=== PATIENT | female | born 1930 | race Caucasian/White ===

== ENCOUNTER 2017-10-12 17:04 | Inpatient (IN) | payer MEDICARE, MEDICAID ==
[~2017-10-12] VITALS: Ht 152.4 cm; Wt 59.0 kg
--- NOTE | 2017-10-12 17:20 | NUR ---
PT CAME FROM SNF WITH REPORT FROM EMS AFTER THE PATIENT HAD " EPISODE OF PSYCOSIS AFTER HAVING AN ARGUMENT WITH DTR. SAFETY AND COMFORT MEASURES PROVIDED. WILL MONITOR.
[2017-10-12] MEDS ORDERED: MIRT15TA7 PO (17:29)
[2017-10-12] MEDS ORDERED: MELA3TAB PO (17:29)
[2017-10-12] MEDS ORDERED: MAGN400O6 PO (17:29)
[2017-10-12] MEDS ORDERED: LORA1TAB PO (17:29)
[2017-10-12] MEDS ORDERED: DOCU-141 PO (17:29)
[2017-10-12] MEDS ORDERED: HALOPERIDOL LACTATE INJ 5 MG/ML VIAL ONE (17:29)
[2017-10-12] MEDS ORDERED: IPRA3AMP23 IH (17:29)
[2017-10-12] MEDS ORDERED: METO25TA20 PO (17:29)
[2017-10-12] MEDS ORDERED: MULT-447 PO (17:29)
[2017-10-12] MEDS ORDERED: CARB1TAB19 PO (17:29)
[2017-10-12] MEDS ORDERED: ACET-868 PO (17:29)
[2017-10-12] MEDS ORDERED: DONE10TA44 PO (17:29)
[2017-10-12] MEDS ORDERED: RIVA10TA PO (17:29)
[2017-10-12] MEDS ORDERED: MAG30ORA PO (17:29)
[2017-10-12] MEDS ORDERED: PANT40TA2 PO (17:29)
--- NOTE | 2017-10-12 17:31 | NUR ---
PT IS EXTREMELY AGITATED, SCREAMING, CRYING, KICKING AND PUNCHING STAFF MEMBERS. AT BS. RECEIVED VERBAL ORDERS FOR HALDOM 5MG IM- GIVEN ORDERED. SAFELY RESTRAINED PER PROTOCOL. WILL MONITOR.
[2017-10-12] MEDS ORDERED: LORAZEPAM INJ 2 MG/ML VIAL ONE (17:44)
--- NOTE | 2017-10-12 17:56 | NUR ---
RECEIVED VERBAL ORDERS FROM MD FOR ATIVAN 2MG IM. ORDERS CARRIED OUT. VSS. WILL MONITOR.
[2017-10-12 19:02] LABS: BASOPHILS % (AUTO) 0.4 % (0.0-2.0); EOSINOPHILS % (AUTO) 2.1 % (0.0-6.0); HEMATOCRIT 36 % (33-45); HEMOGLOBIN 12.3 g/dL (11.5-14.8); LYMPHOCYTES # (AUTO) 1.1 /CMM (0.8-4.8); LYMPHOCYTES % (AUTO) 18.4 % (20.0-44.0); MEAN CORPUSCULAR HGB CONC 34 g/dl (31.0-36.0); MEAN CORPUSCULAR VOLUME 95 fL (82-100); MONOCYTES # (AUTO) 0.3 /CMM (0.1-1.30); MONOCYTES % (AUTO) 4.7 % (2.0-12.0); NEUTROPHILS # (AUTO) 4.6 /CMM (1.8-8.9); NEUTROPHILS % (AUTO) 74.4 % (43.0-81.0); PLATELET COUNT (AUTO) 348 /CMM (150-450); WHITE BLOOD COUNT (AUTO) 6.1 K/uL (4.3-11.0)
[2017-10-12 19:19] LABS: CALCIUM, SERUM 8.9 mg/dL (8.5-10.1); CARBON DIOXIDE 23 mmol/L (21-32); CHLORIDE 107 mmol/L (98-107); CREATININE 0.8 mg/dL (0.6-1.3); GLUCOSE 108 mg/dL (74-106); POTASSIUM 3.7 mmol/L (3.5-5.1); SODIUM SERUM 140 mmol/L (136-145); UREA NITROGEN, BLOOD 22 mg/dL (7-18)
[2017-10-12 19:33] LABS: ACETAMINOPHEN 5 ug/ml (10-30); ALANINE AMINOTRANSFERASE 15 U/L (12-78); ALBUMIN 2.8 g/dL (3.4-5.0); ALKALINE PHOSPHATASE 67 U/L (46-116); ASPARTATE AMINOTRANSFERASE 21 U/L (15-37); BILIRUBIN,DIRECT 0.1 mg/dL (0.0-0.2); BILIRUBIN,TOTAL 0.2 mg/dL (0.2-1.0); TOTAL PROTEIN, SERUM 6.5 g/dL (6.4-8.2)
[2017-10-12 19:39] LABS: ALCOHOL, BLOOD < 3 mg/dL (0-0); SALICYLATE 1.8 mg/dL (2.8-20.0)
[2017-10-12 19:46] LABS: THYROID STIMULATING HORMONE 4.185 uIU/mL (0.358-3.74)
[2017-10-12 20:05] LABS: TROPONIN I < 0.017 ng/mL (0.00-0.056)
--- NOTE | 2017-10-12 20:15 | NUR ---
REPORT GIVEN TO LOAL SAVAGE.
--- NOTE | 2017-10-12 20:40 | NUR ---
UNABLE TO ESTABLISH IV ACCESS, PT REFUSED AFTER FEW TRIES. ENDORSED TO RECEIVING RN.
--- NOTE | 2017-10-12 22:00 | NUR ---
RN ADMITTING NOTES Pt ARRIVED TO FLOOR VIA GURNEY. Pt LOOKED CALM, BUT SEDATED. WAS GIVEN HALDOL 5MG IM AND ATIVAN 2MG IM IN THE ER DUE TO Pt's AGITATION AND COMBATIVENESS. PER BAGGAGE INSPECTOR NOTES. Pt WAS EXTREMELY AGITATED, KICKING AND SCREAMING, AND TRYING TO PUNCH STAFF MEMBERS; Pt HAD TO BE RESTRAINED. UPON ARRIVAL TO THE FLOOR, Pt WAS NO LONGER IN RESTRAINTS, AND WAS GOING IN AND OUT OF SLEEP. Pt WAS EASILY AWAKENED BY NAME. Pt WAS ABLE TO STATE HER OWN NAME, AND , AND WAS ABLE TO SAY THE CURRENT YEAR AND THE CURRENT US PRESIDENT, BUT WAS UNSURE WHERE SHE WAS (A/OX2). WHEN ASKED WHAT HAPPENED AND WHY SHE WAS HERE, Pt SAID SHE DID NOT KNOW AND DID NOT REMEMBER. ON TELE MONITOR FOR 24HR OBSERVATION. ONCE MEDICALLY CLEARED, SHE WILL BE TRANSFERRED TO GPS. SITTER IS AT BEDSIDE DUE TO 5150 HOLD. SAFETY MEASURES IN PLACE. BED LOW, LOCKED, HOB ELEVATED, SIDE RAILS UP, CALL LIGHT WITHIN REACH. WILL CONTINUE TO MONITOR Pt THROUGHOUT THE NIGHT FOR SAFETY.
--- NOTE | 2017-10-12 22:05 | NUR ---
5150 HOLD STARTED 10/12 @1915. SITTER AT BEDSIDE.
[2017-10-13] MEDS ORDERED: ACETAMINOPHEN 325 MG TABLET PO PRN (01:30)
[2017-10-13] MEDS ORDERED: MAG HYDROX/AL HYDROX/SIMETH 30 ML UDC PO PRN (01:30)
[2017-10-13] MEDS ORDERED: Z GUARD REMEDY 2 OZ OINT TP PRN (01:30)
[2017-10-13] MEDS ORDERED: ONDANSETRON HCL/PF 4 MG/2 ML VIAL IVP PRN (01:30)
[2017-10-13] MEDS ORDERED: MAGNESIUM HYDROXIDE 30 ML UDC PO PRN (01:30)
--- NOTE | 2017-10-13 02:00 | NUR ---
RN NOTES PERFORMED BEDSIDE SWALLOW EVAL. Pt WAS ABLE TO FOLLOW INSTRUCTIONS WELL AND SWALLOW FINE WITH ANY PROBLEMS. INFORMED CHILDCARE PROVIDER KAMERON. GAVE ORDER TO CHANGE NPO STATUS TO CARDIAC.
--- NOTE | 2017-10-13 02:20 | NUR ---
IV ACCESS: RFA #[id number]
[2017-10-13 04:00] VITALS: BP 118/48
--- NOTE | 2017-10-13 05:30 | NUR ---
RN NOTES Pt REFUSED AM LABS THIS MORNING, SAID SHE WANTED TO KEEP SLEEPING. LAB WILL TRY TO COME BACK LATER AFTER BREAKFAST.
[2017-10-13] MEDS: IV D5/0.45 NACL 1,000 ML IV PRN ×2 (05:56→18:15)
--- NOTE | 2017-10-13 06:55 | NUR ---
RN CLOSING NOTES NO SIGNIFICANT CHANGES IN Pt's CONDITION. NO S/S OF ACUTE DISTRESS OR SOB NOTED DURING THE NIGHT. ALL NEEDS MET AND ATTENDED TO. SAFETY MEASURES IN PLACE. TELE READING SR [id number]. WILL ENDORSE TO DAYSHIFT RN FOR Pt's SEAN.
--- NOTE | 2017-10-13 07:39 | NUR ---
TELE/RN OPENING NOTE PATIENT IN BED IN STABLE CONDITION. A/O X 2. NO SIGNS OF ACUTE DISTRESS. NO COMPLAIN OF PAIN OR DISCOMFORT. ON TELE MONITOR WITH SINUS RHYTHM RATE OF 63. ON HOLD, 1:1 SITTER AT BEDSIDE. ALL NEEDS ATTENDED TO. CALL LIGHT WITHIN REACH. WILL CONTINUE TO MONITOR TO ENSURE SAFETY.
[2017-10-13 07:41] VITALS: BP 122/56
[2017-10-13 08:00] VITALS: BP 122/56
[2017-10-13] MEDS: DOCUSATE SODIUM 100 MG CAPSULE PO SCH (08:48)
[2017-10-13] MEDS: PANTOPRAZOLE 40 MG VIAL IV SCH (08:48)
[2017-10-13] MEDS: MULTIVIT, IRON, MIN NO. 8, FA 1 TAB PO SCH (08:49)
[2017-10-13] MEDS: CARBIDOPA/LEVODOPA 10/100 MG 1 UDTAB PO SCH ×3 (08:49→16:34)
[2017-10-13] MEDS: METOPROLOL TARTRATE 25 MG TABLET PO SCH (08:49)
[2017-10-13 09:27] LABS: APPEARANCE,URINE SL CLOUDY (CLEAR); BILIRUBIN,URINE NEGATIVE (NEGATIVE); BLOOD, URINE TRACE-INTA Ery/uL (NEGATIVE); COLOR,URINE YELLOW (YELLOW); KETONES,URINE NEGATIVE (NEGATIVE); LEUKOCYTE ESTERASE ,URINE 1+ (NEGATIVE); NITRITE, URINE NEGATIVE (NEGATIVE); PROTEIN,URINE NEGATIVE (NEGATIVE); UGLUCOSE NEGATIVE (NEGATIVE); UROBILINOGEN,URINE 0.2 EU/dL (0.2)
[2017-10-13 09:46] LABS: BACTERIA,URINE Many /HPF (None Seen); RBC,URINE 0-2 /HPF (0-2); SQUAMOUS EPITHELIAL CELL,UR Few /HPF (None Seen); WBC,URINE TOO NUMEROUS TO COUN /HPF (0-3)
[2017-10-13 11:14] LABS: BASOPHILS # (AUTO) 0.1 /CMM (0.0-0.2); BASOPHILS % (AUTO) 1.1 % (0.0-2.0); EOSINOPHILS % (AUTO) 2.3 % (0.0-6.0); HEMATOCRIT 35 % (33-45); HEMOGLOBIN 11.7 g/dL (11.5-14.8); LYMPHOCYTES # (AUTO) 0.7 /CMM (0.8-4.8); LYMPHOCYTES % (AUTO) 11.3 % (20.0-44.0); MEAN CORPUSCULAR HGB CONC 34 g/dl (31.0-36.0); MEAN CORPUSCULAR VOLUME 97 fL (82-100); MONOCYTES # (AUTO) 0.5 /CMM (0.1-1.30); MONOCYTES % (AUTO) 7.8 % (2.0-12.0); NEUTROPHILS % (AUTO) 77.5 % (43.0-81.0); PLATELET COUNT (AUTO) 303 /CMM (150-450); RDW COEFFICIENT OF VARIATION 14.3 (11.5-15.0); RED BLOOD CELL COUNT(AUTO) 3.58 MIL/uL (4.0-5.2); WHITE BLOOD COUNT (AUTO) 6.5 K/uL (4.3-11.0)
[2017-10-13 11:37] LABS: CALCIUM, SERUM 8.2 mg/dL (8.5-10.1); CARBON DIOXIDE 24 mmol/L (21-32); CHLORIDE 107 mmol/L (98-107); CREATININE 0.8 mg/dL (0.6-1.3); GLUCOSE 117 mg/dL (74-106); PHOSPHORUS 3.8 mg/dL (2.5-4.9); POTASSIUM 3.9 mmol/L (3.5-5.1); SODIUM SERUM 140 mmol/L (136-145); UREA NITROGEN, BLOOD 16 mg/dL (7-18)
[2017-10-13] MEDS: CEPHALEXIN MONOHYDRATE 500 MG CAPSULE PO SCH ×2 (11:52→21:22)
[2017-10-13] MEDS: ALBUTEROL FS 2.5 MG/0.5 ML VIAL.NEB NEB SCH ×5 (12:06→23:04)
[2017-10-13] MEDS: IPRATROPIUM NEB FS 0.5 MG/2.5 ML AMPUL.NEB NEB SCH ×4 (12:06→23:04)
[2017-10-13 15:57] VITALS: BP 123/58
[2017-10-13 16:00] VITALS: BP 123/58
[2017-10-13] MEDS: ACETAMINOPHEN 325 MG TABLET PO PRN (16:35)
[2017-10-13] MEDS ORDERED: RIVAROXABAN 10 MG TABLET PO SCH (17:00)
--- NOTE | 2017-10-13 18:25 | NUR ---
MS/RN CLOSING NOTE PATIENT IN BED IN STABLE CONDITION. A/O X 2-3, NO SIGNS OF ACUTE DISTRESS. NO COMPLAIN OF PAIN OR DISCOMFORT. 1:1 SITTER AT BEDSIDE. ALL NEEDS ATTENDED TO. CALL LIGHT WITHIN REACH. WILL ENDORSE TO NEXT SHIFT FOR CONTINUITY OF CARE.
--- NOTE | 2017-10-13 19:08 | NUR ---
RN NOTES RECEIVE PT IN BED A/O X3 , 1:1 SITTER, NO S/S OF DISTRESS, STABLE, SAFETY MEASURES IN PLACE, CALL LIGHT WITHIN REACH, WILL CONTINUE TO MONITOR Addendum: 10/13/17 at 1909 by TAN HERNANDEZ RN ADDENDUM: CORRECTION. PT A/O X2
[2017-10-13 20:00] VITALS: BP 109/61
[2017-10-13] MEDS ORDERED: Medication Not On Formulary EA (Melatonin 3 MG) PO SCH (22:00)
[2017-10-13] MEDS ORDERED: MIRTAZAPINE 15 MG TABLET PO SCH (22:00)
[2017-10-13] MEDS ORDERED: DONEPEZIL 5 MG TABLET PO SCH (22:00)
[2017-10-14] MEDS: ACETAMINOPHEN 325 MG TABLET PO PRN (01:30)
--- NOTE | 2017-10-14 01:50 | NUR ---
PAGED HOSPITALIST BLOCK HANDLER AT NIGHT SPOKE TO EDDIE, FORESTRY SUPPORT SPECIALIST RELAYED PT BEING AGGRESSIVE TOWARD STAFF AND DISORGANIZED THOUGHTS PT RE ORIENTED PER EDDIE SHE WILL SEE THE PT.
--- NOTE | 2017-10-14 02:00 | NUR ---
MS RN NOTES PT NOW CALM AFTER REORIENTATION
--- NOTE | 2017-10-14 02:46 | NUR ---
MS RN NOTES SPOKE TO EDDIE VALUATION CONSULTANT ABOUT PT BEHAVIOR PER EDDIE SHE WILL PUT ORDER ONCE WHEN PT BECOMES AGITATIVE PT BEHAVIOR NOW IS CALM AND SLEEPING
[2017-10-14] MEDS ORDERED: QUETIAPINE FUMARATE 25 MG TABLET PO PRN (03:00)
[2017-10-14] MEDS: IPRATROPIUM NEB FS 0.5 MG/2.5 ML AMPUL.NEB NEB SCH ×3 (03:05→11:30)
[2017-10-14] MEDS: ALBUTEROL FS 2.5 MG/0.5 ML VIAL.NEB NEB SCH ×3 (03:05→11:30)
--- NOTE | 2017-10-14 06:54 | NUR ---
MS RN NOTES PT ASLEEP COMFORTABLY IN BED AND EASILY AWAKEN SEMI FOWLERS POSITION TOLERATING ROOM AIR 98% NOT IN RESPIRATORY DISTRESS. STABLE CONDITION. CALM. KEPT CLEAN AND DRY AND COMFORTABLE. NURSING CARE RENDERED. NEEDS ATTENDED AND ANTICIPATED. NO C/O OF PAIN. GOOD SKIN CARE PROVIDED. REPOSITION EVERY 2 HOURS FOR COMFORT. ON LOW BED TO ENSURE SAFETY, CALL LIGHT WITHIN REACH, WILL ENDORSE TO THE NEXT SHIFT CONTINUE PLAN OF CARE
--- NOTE | 2017-10-14 07:30 | NUR ---
MS/RN OPENING NOTE PATIENT IN BED IN STALE CONDITION. A/O X 2. NO SIGNS OF ACUTE DISTRESS. NO COMPLAIN OF PAIN OR DISCOMFORT. ON HOLD SECONDARY TO COMBATIVE, AGGRESSIVE BEHAVIOR. 1:1 SITTER AT BEDSIDE. ALL NEEDS ATTENDED TO. CALL LIGHT WITHIN REACH. WILL CONTINUE TO MONITOR TO ENSURE SAFETY.
[2017-10-14 08:27] VITALS: BP 140/70
[2017-10-14] MEDS: DOCUSATE SODIUM 100 MG CAPSULE PO SCH (08:27)
[2017-10-14] MEDS: MULTIVIT, IRON, MIN NO. 8, FA 1 TAB PO SCH (08:27)
[2017-10-14] MEDS: PANTOPRAZOLE 40 MG VIAL IV SCH (08:27)
[2017-10-14] MEDS: METOPROLOL TARTRATE 25 MG TABLET PO SCH (08:27)
[2017-10-14] MEDS: CARBIDOPA/LEVODOPA 10/100 MG 1 UDTAB PO SCH (08:27)
[2017-10-14] MEDS: CEPHALEXIN MONOHYDRATE 500 MG CAPSULE PO SCH (08:27)
[2017-10-14 11:07] LABS: BASOPHILS % (AUTO) 0.3 % (0.0-2.0); EOSINOPHILS % (AUTO) 2.6 % (0.0-6.0); HEMATOCRIT 34 % (33-45); HEMOGLOBIN 11.6 g/dL (11.5-14.8); LYMPHOCYTES # (AUTO) 0.8 /CMM (0.8-4.8); LYMPHOCYTES % (AUTO) 16.4 % (20.0-44.0); MEAN CORPUSCULAR HGB CONC 34 g/dl (31.0-36.0); MEAN CORPUSCULAR VOLUME 96 fL (82-100); MONOCYTES # (AUTO) 0.5 /CMM (0.1-1.30); MONOCYTES % (AUTO) 9.9 % (2.0-12.0); NEUTROPHILS # (AUTO) 3.2 /CMM (1.8-8.9); NEUTROPHILS % (AUTO) 70.8 % (43.0-81.0); PLATELET COUNT (AUTO) 299 /CMM (150-450); RDW COEFFICIENT OF VARIATION 13.8 (11.5-15.0); RED BLOOD CELL COUNT(AUTO) 3.56 MIL/uL (4.0-5.2); WHITE BLOOD COUNT (AUTO) 4.6 K/uL (4.3-11.0)
[2017-10-14 11:24] LABS: CALCIUM, SERUM 8.4 mg/dL (8.5-10.1); CARBON DIOXIDE 26 mmol/L (21-32); CHLORIDE 108 mmol/L (98-107); CREATININE 0.8 mg/dL (0.6-1.3); GLUCOSE 110 mg/dL (74-106); MAGNESIUM 2.1 mg/dL (1.8-2.4); PHOSPHORUS 3.6 mg/dL (2.5-4.9); POTASSIUM 4.2 mmol/L (3.5-5.1); SODIUM SERUM 143 mmol/L (136-145); UREA NITROGEN, BLOOD 11 mg/dL (7-18)
[2017-10-14 11:27] LABS: CHOLESTEROL 143 mg/dL (<200); HDL CHOLESTEROL 39 mg/dL (40-60); LDL 94 mg/dL (0-99); TRIGLYCERIDES 71 mg/dL (30-150)
--- NOTE | 2017-10-14 11:46 | NUR ---
MS/SOFTWARE DESIGN ANALYST PATIENT DISCHARGE TO [facility] IN STABLE CONDITION. A/OX 2, NO SIGNS OF ACUTE DISTRESS. NO COMPLAIN OF PAIN OR DISCOMFORT. ON HOLD. DISCHARGE EDUCATION AND INSTRUCTIONS PROVIDED, REINFORCEMENT NEEDED. REPORT GIVEN TO LYNNE SAVAGE FROM [facility]. IV LINE REMOVED. ALL NEEDS ATTENDED TO. LEFT VIA GURNEY IN STABLE CONDITION ACCOMPANIED BY 2 NURSES.
[2017-10-14] MEDS ORDERED: CEPH-570 PO (12:15)
== END 2017-10-14 11:30 | DRG 913 ==
LOC: ER 17:08 → TELE 20:46 → MED 10-13 09:12
PROVIDERS: ADMIT Hospitalist; ATTEND Hospitalist
DX: S09.90XA Unspecified injury of head, initial encounter (principal); N17.0 Acute kidney failure with tubular necrosis; G92 Toxic encephalopathy; E44.0 Moderate protein-calorie malnutrition; F33.2 Major depressive disorder, recurrent severe without psychotic features; I13.0 Hypertensive heart and chronic kidney disease with heart failure and stage 1 through stage 4 chronic kidney disease, or unspecified chronic kidney disease; F05 Delirium due to known physiological condition; N39.0 Urinary tract infection, site not specified; E88.09 Other disorders of plasma-protein metabolism, not elsewhere classified; G20 Parkinson's disease; R55 Syncope and collapse; W18.30XA Fall on same level, unspecified, initial encounter; I50.9 Heart failure, unspecified; F29 Unspecified psychosis not due to a substance or known physiological condition; N18.3 Chronic kidney disease, stage 3 (moderate); K21.9 Gastro-esophageal reflux disease without esophagitis; Z86.73 Personal history of transient ischemic attack (TIA), and cerebral infarction without residual deficits; Z87.440 Personal history of urinary (tract) infections; J44.9 Chronic obstructive pulmonary disease, unspecified; Z91.14 Patient's other noncompliance with medication regimen; Z88.2 Allergy status to sulfonamides; E03.9 Hypothyroidism, unspecified; Z68.25 Body mass index [BMI] 25.0-25.9, adult; F41.9 Anxiety disorder, unspecified; G30.9 Alzheimer's disease, unspecified; F02.80 Dementia in other diseases classified elsewhere, unspecified severity, without behavioral disturbance, psychotic disturbance, mood disturbance, and anxiety; F41.0 Panic disorder [episodic paroxysmal anxiety]; Y93.9 Activity, unspecified; Y92.129 Unspecified place in nursing home as the place of occurrence of the external cause; B96.20 Unspecified Escherichia coli [E. coli] as the cause of diseases classified elsewhere
CPT/HCPCS: 36415; 70450-TC; 71045-TC; 80048-TC; 80061-TC; 80076-TC; 80305; 81000-TC; 83735-TC; 84100-TC; 84439-TC; 84443-TC; 84481; 84484-TC; 85025-TC; 87081-TC; 87086-TC; 87186-TC; 93307-TC; 93880-TC; A4606; C9113; G0480; J1630; J2060; J3490; Z7610

== ENCOUNTER 2017-10-14 11:45 | Inpatient (IN) | payer MEDICARE, MEDICAID ==
[~2017-10-14] VITALS: Ht 147.3 cm; Wt 57.2 kg
[~2017-10-14 11:45] MED LIST: ACET-868 PO; CARB1TAB19 PO; DOCU-141 PO; DONE10TA44 PO; IPRA3AMP23 IH; LORA1TAB PO; MAG30ORA PO; MAGN400O6 PO; MELA3TAB PO; METO25TA20 PO; MIRT15TA7 PO; MULT-447 PO; PANT40TA2 PO; RIVA10TA PO
[2017-10-14] MEDS ORDERED: CEPH-570 PO (12:15)
[2017-10-14] MEDS ORDERED: TEMAZEPAM 7.5 MG CAPSULE PO PRN (13:30)
[2017-10-14] MEDS ORDERED: MAG HYDROX/AL HYDROX/SIMETH 30 ML UDC PO PRN ×2 (13:30→19:00)
[2017-10-14] MEDS ORDERED: MAGNESIUM HYDROXIDE 30 ML UDC PO PRN ×2 (13:30→19:00)
--- NOTE | 2017-10-14 16:00 | NUR ---
GPS/RN XAVIER MACIEL ETL DATA ARCHITECT SEEN THE PATIENT
--- NOTE | 2017-10-14 16:18 | NUR ---
RN NOTE: PATIENT CAME TO THE ER AT [facility] FROM [facility] FOR ALTERED MENTAL STATUS AND BEING COMBATIVE WITH STAFF. PATIENT WAS TRANSFERED FROM ER TO [facility]. FROM [facility] PATIENT IS COOPERATIVE AND ALERT IN THE MORNINGS. AT NIGHT PATIENT BECOMES CONFUSED AND COMBATIVE. FROM [facility], PATIENT TRANSFERRED TO [facility]. PATIENT ARRIVED INTO THE UNIT AT 1145. PATIENT IS ALERT AND ORIENTED X 2/3. PATIENT STATES SHE OFTEN HAS DEPRESSION AND ANXIETY. DENIES SI/HI AT THE MOMENT. DENIES COMMAND HALLUCINATIONS, VH, AND AH. PATIENT UNABLE TO SIGN ADMISSION PAPERS. BODY CHECK AND PICTURES ARE IN CHART. BELONGINGS LOGGED AND PUT AWAY INTO LOCKER. DR CASTILLO AWARE AND ADMISSION ORDERS INPUTTED. RAHEEM MADE AWARE AND WILL RECONCILE MEDICATIONS. PATIENT ORIENTED TO UNIT. POLICIES AND PROCEDURES EXPLAINED TO PATIENT. MRSA SWAB COMPLETED. WILL CONTINUE TO MONITOR PATIENT FOR SAFETY.
[2017-10-14 16:40] VITALS: BP 110/56
[2017-10-14] MEDS ORDERED: QUETIAPINE FUMARATE 25 MG TABLET PO SCH (17:00)
[2017-10-14] MEDS ORDERED: ALBUTEROL FS 2.5 MG/3 ML VIAL.NEB NEB PRN (19:00)
[2017-10-14] MEDS ORDERED: ACETAMINOPHEN 325 MG TABLET PO PRN (19:00)
[2017-10-14] MEDS ORDERED: IPRATROPIUM NEB FS 0.5 MG/2.5 ML AMPUL.NEB NEB PRN (19:00)
[2017-10-14] MEDS ORDERED: Medication Not On Formulary EA (Ipratropium/Albuterol Sulfate (Duoneb 2.5-0.5 Mg/3 Ml So IH SCH (19:30)
[2017-10-14 20:21] VITALS: BP 113/58
[2017-10-14] MEDS ORDERED: MIRTAZAPINE 15 MG TABLET PO SCH ×2 (22:00)
[2017-10-15] MEDS: CEPHALEXIN MONOHYDRATE 500 MG CAPSULE PO SCH ×3 (00:05→21:48)
[2017-10-15] MEDS: DONEPEZIL 5 MG TABLET PO SCH ×2 (00:06→21:48)
[2017-10-15 07:40] LABS: ALANINE AMINOTRANSFERASE 19 U/L (12-78); ALBUMIN 2.7 g/dL (3.4-5.0); ALKALINE PHOSPHATASE 61 U/L (46-116); ASPARTATE AMINOTRANSFERASE 18 U/L (15-37); BILIRUBIN,TOTAL 0.2 mg/dL (0.2-1.0); CALCIUM, SERUM 8.6 mg/dL (8.5-10.1); CARBON DIOXIDE 27 mmol/L (21-32); CHLORIDE 108 mmol/L (98-107); CREATININE 0.9 mg/dL (0.6-1.3); GLUCOSE 87 mg/dL (74-106); POTASSIUM 3.9 mmol/L (3.5-5.1); SODIUM SERUM 144 mmol/L (136-145); TOTAL PROTEIN, SERUM 6.2 g/dL (6.4-8.2); UREA NITROGEN, BLOOD 13 mg/dL (7-18)
[2017-10-15 07:41] LABS: CHOLESTEROL 140 mg/dL (<200); HDL CHOLESTEROL 38 mg/dL (40-60); LDL 96 mg/dL (0-99); TRIGLYCERIDES 85 mg/dL (30-150)
[2017-10-15 08:00] VITALS: BP 121/63
[2017-10-15] MEDS: DOCUSATE SODIUM 100 MG CAPSULE PO SCH (08:47)
[2017-10-15] MEDS: PANTOPRAZOLE 40 MG TABLET.DR PO SCH (08:47)
[2017-10-15] MEDS: MULTIVITAMINS,THERAGRAN 1 UDTAB TABLET PO SCH (08:47)
[2017-10-15] MEDS: CARBIDOPA/LEVODOPA 10/100 MG 1 UDTAB PO SCH ×3 (08:48→17:02)
[2017-10-15] MEDS: METOPROLOL TARTRATE 25 MG TABLET PO SCH (08:48)
[2017-10-15 16:00] VITALS: BP 128/70
[2017-10-15] MEDS: RIVAROXABAN 10 MG TABLET PO SCH (17:03)
[2017-10-15] MEDS: QUETIAPINE FUMARATE 25 MG TABLET PO SCH (17:03)
[2017-10-15 19:57] VITALS: BP 126/66
[2017-10-15] MEDS: MIRTAZAPINE 15 MG TABLET PO SCH (21:48)
[2017-10-15] MEDS: LORAZEPAM 0.5 MG TABLET PO PRN (21:48)
[2017-10-16 08:00] VITALS: BP 131/71
[2017-10-16] MEDS: CEPHALEXIN MONOHYDRATE 500 MG CAPSULE PO SCH ×2 (09:05→21:11)
[2017-10-16] MEDS: MULTIVITAMINS,THERAGRAN 1 UDTAB TABLET PO SCH (09:05)
[2017-10-16] MEDS: PANTOPRAZOLE 40 MG TABLET.DR PO SCH (09:05)
[2017-10-16] MEDS: DOCUSATE SODIUM 100 MG CAPSULE PO SCH (09:05)
[2017-10-16] MEDS: METOPROLOL TARTRATE 25 MG TABLET PO SCH (09:05)
[2017-10-16] MEDS: CARBIDOPA/LEVODOPA 10/100 MG 1 UDTAB PO SCH ×3 (09:23→16:52)
[2017-10-16] MEDS: QUETIAPINE FUMARATE 25 MG TABLET PO SCH ×2 (12:09→16:51)
[2017-10-16 16:00] VITALS: BP 118/52
[2017-10-16] MEDS: RIVAROXABAN 10 MG TABLET PO SCH (16:54)
[2017-10-16 20:19] VITALS: BP 104/68
[2017-10-16] MEDS: DONEPEZIL 5 MG TABLET PO SCH (21:11)
[2017-10-16] MEDS: MIRTAZAPINE 15 MG TABLET PO SCH (21:12)
[2017-10-16] MEDS: ACETAMINOPHEN 325 MG TABLET PO PRN (21:45)
[2017-10-17] MEDS: ACETAMINOPHEN 325 MG TABLET PO PRN ×2 (05:48→21:47)
--- NOTE | 2017-10-17 05:48 | NUR ---
GPS RN NOTES: PATIENT C/O LEFT KNEE PAIN, 09/15, ADMINISTERED ACETAMINOPHEN 650MG PO ORDERED. WILL CONTINUE TO MONITOR.
[2017-10-17] MEDS: PANTOPRAZOLE 40 MG TABLET.DR PO SCH (07:30)
[2017-10-17 08:00] VITALS: BP 125/68
[2017-10-17] MEDS: CARBIDOPA/LEVODOPA 10/100 MG 1 UDTAB PO SCH ×3 (08:57→17:00)
[2017-10-17] MEDS: CEPHALEXIN MONOHYDRATE 500 MG CAPSULE PO SCH ×2 (08:57→21:00)
[2017-10-17] MEDS: METOPROLOL TARTRATE 25 MG TABLET PO SCH (08:57)
[2017-10-17] MEDS: MULTIVITAMINS,THERAGRAN 1 UDTAB TABLET PO SCH (08:57)
[2017-10-17] MEDS: DOCUSATE SODIUM 100 MG CAPSULE PO SCH (08:57)
[2017-10-17] MEDS: QUETIAPINE FUMARATE 25 MG TABLET PO SCH ×2 (09:08→17:00)
--- NOTE | 2017-10-17 15:09 | NUR ---
Initial Discharge Note: Pt will return to [facility] Address: [address], [place] [address] . SW will help form a safe and proper discharge plan.
--- NOTE | 2017-10-17 15:26 | NUR ---
DEISI spoke with patient daughter Rosalee Camargo [phone] to inform her of patients discharge for 10/18/17 back to [facility]. Daughter stated she did not want mother to go back to [facility] because it was too far from daughters home and she wanted patient to be placed at a facility near [place]. DEISI explained to daughter that [facility] was an appropriate placement for patient based on patients level of care needed. Daughter was upset with DEISI stating she wanted SW to find a closer location to her home and that she did not agree with discharge plan. DEISI asked daughter if she was patients DPOA and daughter responded by saying she was not. DEISI stated to daughter that she would attempt to contact other locked SNP's near [place] however based on level of care needed patient may not be accepted. DEISI also went on to state to daughter that if she interfered with discharge plan she would be billed for additional hospital days. Daughter was upset and hung up on SW.
--- NOTE | 2017-10-17 15:48 | NUR ---
DEISI faxed referral to Maria Isabel palliative care coordinator at [facility] [phone]. SW called facility to confirm they had received referral. Confirmation was given.
[2017-10-17 16:10] VITALS: BP 97/56
[2017-10-17] MEDS: RIVAROXABAN 10 MG TABLET PO SCH (17:00)
[2017-10-17 20:00] VITALS: BP 130/69
[2017-10-17] MEDS: MIRTAZAPINE 15 MG TABLET PO SCH (21:01)
[2017-10-17] MEDS: DONEPEZIL 5 MG TABLET PO SCH (21:04)
[2017-10-17] MEDS: LORAZEPAM 0.5 MG TABLET PO PRN (23:40)
--- NOTE | 2017-10-17 23:40 | NUR ---
GPS RN NOTES: PATIENT IS ANXIOUS. VSS. ADMINISTERED ATIVAN 0.5MG PO ORDERED. WILL CONTINUE TO MONITOR [id number] FOR SAFETY AND BEHAVIOR.
--- NOTE | 2017-10-18 08:37 | NUR ---
DEISI spoke with Maria Isabel brownfield program coordinator at [facility] [phone] to inquire on referral status. Maria Isabel mentioned to DEISI that facility had availability however, she will not admit patient until she schedules a meeting with pts daughter Rosalee. DEISI stated to Maria Isabel that she would inform daughter and pt will be discharged to [facility].
--- NOTE | 2017-10-18 08:40 | NUR ---
DEISI contacted pts daughter Rosalee Camargo [phone] to inform her of patients discharge for 10/18/17 back to [facility] and referral status for [facility] Address: [address], [place] [address] . DEISI informed pts daughter that [facility] will accept pt however a meeting with Maria Isabel student records coordinator needed to be scheduled first before pts transfer. Pts daughter was agreeable to discharge plan and stated she would contact Maria Isabel to schedule and appointment and coordinate a transfer.
[2017-10-18] MEDS: CEPHALEXIN MONOHYDRATE 500 MG CAPSULE PO SCH (08:54)
[2017-10-18] MEDS: MULTIVITAMINS,THERAGRAN 1 UDTAB TABLET PO SCH (08:54)
[2017-10-18] MEDS: CARBIDOPA/LEVODOPA 10/100 MG 1 UDTAB PO SCH (08:54)
[2017-10-18] MEDS: PANTOPRAZOLE 40 MG TABLET.DR PO SCH (08:54)
[2017-10-18] MEDS: DOCUSATE SODIUM 100 MG CAPSULE PO SCH (08:54)
[2017-10-18 08:55] VITALS: BP 122/59
[2017-10-18] MEDS: METOPROLOL TARTRATE 25 MG TABLET PO SCH (08:55)
--- NOTE | 2017-10-18 10:11 | NUR ---
Discharge Note: Pt will be discharged at 11:00am and will be returning to [facility]. Address: [address] [place] [address] . Transportation to facility will be provided by [facility] [phone]. Daughter Rosalee Camargo [phone] was informed of discharge. Pt presented in a calm manner and stated "I am ready to go back." Pt denied any suicidal/homicidal ideations. Facilitated info to IDT team who are in agreement with discharge arrangement. The multidisciplinary exitcare form was done, printed, signed, and given to the patient. Business Writer: Dr. Braxton Jamison [address] [address] [phone] [facility] [id number] [address] [place] [address]
--- NOTE | 2017-10-18 11:20 | NUR ---
GPS/RN PATIENT CLEARED FOR DISCHARGE TO [facility] BY DR CASTILLO AND FAREBOX REPAIRER NEHEMIAH MONTANEZ. MEDICATIONS RECONCILED BY BOTH DR'S. MEDICATIONS, AFTERCARE PLAN AND EXIT CARE EXPLAINED TO PATIENT, VERBALIZED UNDERSTANDING. D/C PAPER WORK COMPLETED, BELONGINGS RETURNED, PATIENT REFUSED TO SIGN, CO- SIGNED BY 2 RN. PATIENT HAS BILATERAL BRUISING ON HANDS, SACRAL REDNESS AND SCABBING ON FOREHEAD. PATIENT REFUSED D/C PHOTOS STATED," I ALREADY HAD PICTURES TAKEN". PATIENT DENIES SI/HI/AH UPON DISCHARGE, PSYCHIATRIC TREATMENT PLANS MET. REPORT GIVEN TO ROBERT AT [facility], PRESCRIPTIONS FAXED TO FACILITY. PER PARLIAMENTARY ARCHIVIST, DAUGHTER KEITH AWARE AND AGREES WITH D/C PLAN. PATIENT LEFT UNIT CALM, COOPERATIVE, NO DISTRESS NOTED WITH AMBULANCE TRANSPORT AT SIDE.
== END 2017-10-18 11:20 | DRG 885 ==
LOC: GPS 11:45
PROVIDERS: ADMIT Psychiatry & Neurology Psychosomatic Medicine; ATTEND Nurse Practitioner Acute Care
DX: F29 Unspecified psychosis not due to a substance or known physiological condition (principal); N18.3 Chronic kidney disease, stage 3 (moderate); G20 Parkinson's disease; I13.0 Hypertensive heart and chronic kidney disease with heart failure and stage 1 through stage 4 chronic kidney disease, or unspecified chronic kidney disease; I50.9 Heart failure, unspecified; N39.0 Urinary tract infection, site not specified; F03.90 Unspecified dementia, unspecified severity, without behavioral disturbance, psychotic disturbance, mood disturbance, and anxiety; K21.9 Gastro-esophageal reflux disease without esophagitis; E03.9 Hypothyroidism, unspecified; J44.9 Chronic obstructive pulmonary disease, unspecified; Z86.73 Personal history of transient ischemic attack (TIA), and cerebral infarction without residual deficits; Z91.19 Patient's noncompliance with other medical treatment and regimen; F32.9 Major depressive disorder, single episode, unspecified; F41.9 Anxiety disorder, unspecified
CPT/HCPCS: 36415; 80053-TC; 80061-TC; 87081-TC; 97116-TC; 97530-TC

== ENCOUNTER 2018-03-26 12:47 | Inpatient (IN) | payer MEDICARE, MEDICAID ==
[~2018-03-26] VITALS: Ht 147.3 cm; Wt 56.2 kg
[~2018-03-26 12:47] MED LIST changes: +CEPH-570 PO; -LORA1TAB PO; -MELA3TAB PO
--- NOTE | 2018-03-26 13:00 | NUR ---
BIB RA ON 5150 HOLD FOR MEDICAL CLEARANCE. A/OX 1-2, CALM AND COOPERATIVE. BREATHING EVEN AND UNLABORED. NO SOB, NAD, VITALS STABLE. SAFETY AND COMFORT MEASURES IN PLACE. AWAITING MD ORDERS.
[2018-03-26 13:33] LABS: BASOPHILS # (AUTO) 0.1 /CMM (0.0-0.2); BASOPHILS % (AUTO) 1.8 % (0.0-2.0); EOSINOPHILS % (AUTO) 1.3 % (0.0-6.0); HEMATOCRIT 39 % (33-45); HEMOGLOBIN 12.6 g/dL (11.5-14.8); LYMPHOCYTES # (AUTO) 1.1 /CMM (0.8-4.8); LYMPHOCYTES % (AUTO) 19.2 % (20.0-44.0); MEAN CORPUSCULAR HGB CONC 32 g/dl (31.0-36.0); MEAN CORPUSCULAR VOLUME 93 fL (82-100); MONOCYTES # (AUTO) 0.3 /CMM (0.1-1.30); MONOCYTES % (AUTO) 5.5 % (2.0-12.0); NEUTROPHILS % (AUTO) 72.2 % (43.0-81.0); PLATELET COUNT (AUTO) 490 /CMM (150-450); RDW COEFFICIENT OF VARIATION 14.6 (11.5-15.0); RED BLOOD CELL COUNT(AUTO) 4.24 MIL/uL (4.0-5.2); WHITE BLOOD COUNT (AUTO) 5.6 K/uL (4.3-11.0)
[2018-03-26 13:41] LABS: CALCIUM, SERUM 8.8 mg/dL (8.5-10.1); CARBON DIOXIDE 27 mmol/L (21-32); CHLORIDE 106 mmol/L (98-107); CREATININE 1.2 mg/dL (0.6-1.3); GLUCOSE 106 mg/dL (74-106); POTASSIUM 4.3 mmol/L (3.5-5.1); SODIUM SERUM 139 mmol/L (136-145); UREA NITROGEN, BLOOD 30 mg/dL (7-18)
[2018-03-26 13:46] LABS: ACETAMINOPHEN 1 ug/ml (10-30); ALANINE AMINOTRANSFERASE 10 U/L (12-78); ALKALINE PHOSPHATASE 77 U/L (46-116); ASPARTATE AMINOTRANSFERASE 19 U/L (15-37); BILIRUBIN,TOTAL 0.2 mg/dL (0.2-1.0)
[2018-03-26 13:47] LABS: ALCOHOL, BLOOD < 3 mg/dL (0-0); SALICYLATE 1.9 mg/dL (2.8-20.0)
--- NOTE | 2018-03-26 13:57 | NUR ---
REPORT GIVEN TO ITZ SAVAGE FOR SEAN UPON ADMISSION.
[2018-03-26 13:59] LABS: THYROID STIMULATING HORMONE 1.283 uIU/mL (0.358-3.74)
[2018-03-26 14:06] LABS: APPEARANCE,URINE Clear (CLEAR); BILIRUBIN,URINE Negative (NEGATIVE); BLOOD, URINE Trace-lysed Ery/uL (NEGATIVE); COLOR,URINE Yellow (YELLOW); KETONES,URINE Trace (NEGATIVE); LEUKOCYTE ESTERASE ,URINE Large (NEGATIVE); NITRITE, URINE Negative (NEGATIVE); PH,URINE 5.5 (5.0-8.0); PROTEIN,URINE Trace mg/dl (NEGATIVE); UGLUCOSE Negative (NEGATIVE); UROBILINOGEN,URINE 0.2 EU/dL (0.2)
[2018-03-26 14:10] LABS: BACTERIA,URINE Many /HPF (None Seen); SQUAMOUS EPITHELIAL CELL,UR Few /HPF (None Seen); WBC,URINE 81-100 /HPF (0-3)
--- NOTE | 2018-03-26 14:25 | NUR ---
PATIENT TRANSPORTED TO [facility] VIA WHEELCHAIR. RNITZ TO PROVIDE SEAN.
[2018-03-26] MEDS ORDERED: MAGNESIUM HYDROXIDE 30 ML UDC PO PRN (14:30)
[2018-03-26] MEDS ORDERED: MAG HYDROX/AL HYDROX/SIMETH 30 ML UDC PO PRN (14:30)
[2018-03-26] MEDS ORDERED: ACETAMINOPHEN 325 MG TABLET PO PRN ×2 (14:30→19:00)
[2018-03-26 15:19] VITALS: BP 93/55
--- NOTE | 2018-03-26 15:23 | NUR ---
GPS RN ADMITTING NOTE: PT 88 Y/O FEMALE ADMITTED FROM [facility] PLACED ON 5150 HOLD FOR DTO, PER HOLD PT WAS ACTING OUT AGGRESSIVELY TOWARDS OTHERS RESIDENTS AND STAFF IN THE FACILITY,PT HAS HX OF PARKINSON DISEASES, HARDR FAILURE,COPD,CKD,UTI,MDD,DEMENTIA,TIA,GERD. DR CASTILLO NOTIFIED WITH STANDING ORDERS,N.P. SABRINA AWARE TO RECONCILE MEDICATIONS AND RECENT LABS, PT AMBULATORY A/OX2 WITH CONFUSIONS. ALL BELONGINGS CHECKED, SKIN CLEAN AND INTACT.PT CONFUSED, EASILY AGITATED, IRRITABLE, ARGUMENTATIVE.
[2018-03-26 16:00] VITALS: BP 93/55
[2018-03-26] MEDS: ALBUTEROL FS 2.5 MG/3 ML VIAL.NEB NEB SCH (19:30)
[2018-03-26] MEDS: IPRATROPIUM NEB FS 0.5 MG/2.5 ML AMPUL.NEB NEB SCH (19:30)
[2018-03-26 20:25] VITALS: BP 110/64
[2018-03-26] MEDS: CEPHALEXIN MONOHYDRATE 500 MG CAPSULE PO SCH ×2 (21:00→21:16)
[2018-03-26] MEDS: DONEPEZIL 5 MG TABLET PO SCH (21:21)
[2018-03-26] MEDS: TEMAZEPAM 7.5 MG CAPSULE PO PRN (21:22)
--- NOTE | 2018-03-26 21:24 | NUR ---
TEMAZEPAM 7.5 MG CAP 1 PO GIVEN.
[2018-03-26] MEDS ORDERED: MIRTAZAPINE 15 MG TABLET PO SCH (22:00)
[2018-03-27] MEDS ORDERED: CEPHALEXIN MONOHYDRATE 250 MG CAPSULE PO SCH
[2018-03-27] MEDS: IPRATROPIUM NEB FS 0.5 MG/2.5 ML AMPUL.NEB NEB SCH (01:30)
[2018-03-27] MEDS: ALBUTEROL FS 2.5 MG/3 ML VIAL.NEB NEB SCH (01:30)
[2018-03-27 08:00] VITALS: BP 114/60
[2018-03-27 08:13] LABS: ALANINE AMINOTRANSFERASE 18 U/L (12-78); ALBUMIN 2.9 g/dL (3.4-5.0); ALKALINE PHOSPHATASE 67 U/L (46-116); ASPARTATE AMINOTRANSFERASE 21 U/L (15-37); BILIRUBIN,TOTAL 0.3 mg/dL (0.2-1.0); CALCIUM, SERUM 8.6 mg/dL (8.5-10.1); CARBON DIOXIDE 27 mmol/L (21-32); CHLORIDE 107 mmol/L (98-107); CREATININE 0.9 mg/dL (0.6-1.3); GLUCOSE 84 mg/dL (74-106); POTASSIUM 4.2 mmol/L (3.5-5.1); SODIUM SERUM 142 mmol/L (136-145); TOTAL PROTEIN, SERUM 6.5 g/dL (6.4-8.2); UREA NITROGEN, BLOOD 26 mg/dL (7-18)
[2018-03-27 08:15] LABS: CHOLESTEROL 162 mg/dL (<200); HDL CHOLESTEROL 42 mg/dL (40-60); LDL 117 mg/dL (0-99); TRIGLYCERIDES 90 mg/dL (30-150)
[2018-03-27] MEDS: CEPHALEXIN MONOHYDRATE 500 MG CAPSULE PO SCH ×2 (09:11→21:16)
[2018-03-27] MEDS: DOCUSATE SODIUM 100 MG CAPSULE PO SCH (09:11)
[2018-03-27] MEDS: CARBIDOPA/LEVODOPA 10/100 MG 1 UDTAB PO SCH ×3 (09:11→16:22)
[2018-03-27] MEDS: METOPROLOL TARTRATE 25 MG TABLET PO SCH (09:12)
[2018-03-27] MEDS: MULTIVITAMINS,THERAGRAN 1 UDTAB TABLET PO SCH (09:12)
[2018-03-27] MEDS: PANTOPRAZOLE 40 MG TABLET.DR PO SCH (09:13)
--- NOTE | 2018-03-27 15:12 | NUR ---
DEISI called the pt's daughter, Rosalee ([phone]), and discussed the discharge plan of the pt returning to [facility].
--- NOTE | 2018-03-27 15:13 | NUR ---
Initial Discharge Plan: Pt currently resides at [facility] located at [id number] [place] [id number]; . Per pt and her daughter, Rosalee ([phone]), the pt should return to the facility. SW will work with the pt and the MD regarding appropriate discharge planning. SW will form a safe and proper discharge.
[2018-03-27 16:00] VITALS: BP 158/79
[2018-03-27] MEDS: RIVAROXABAN 10 MG TABLET PO SCH (16:31)
[2018-03-27 19:58] VITALS: BP 113/50
[2018-03-27 20:00] VITALS: BP 113/50
--- NOTE | 2018-03-27 20:00 | NUR ---
GPS/RN OPENING NOTES RECEIVED PATIENT , SITTING IN WHEELCHAIR, ABLE TO WHEEL SELF, NO S/S OF PAIN AND DISTRESS NOTED AND VERBALIZED, REQUESTED TO HAVE DIAPER PLACED ON BEFORE BED TIME, OFFERED FLUIDS, INSTRUCTED TO CALL FOR ASSISTANCE AT ALL TIMES. WILL CONTINUE TO MONITOR.
[2018-03-27] MEDS: DONEPEZIL 5 MG TABLET PO SCH (21:16)
[2018-03-27] MEDS: MIRTAZAPINE 15 MG TABLET PO SCH (21:16)
[2018-03-28] MEDS: TEMAZEPAM 7.5 MG CAPSULE PO PRN (01:52)
--- NOTE | 2018-03-28 01:52 | NUR ---
GPS/RN NOTES PATIENT AWAKEN FROM BED AND REPORTED UNABLE TO SLEEP WELL, REPORTED AND REQUESTED TO TAKE NEEDED RESTOEIL . ALERT, VERBALIZED NEEDS.SAD EXPRESSION .
[2018-03-28] MEDS: PANTOPRAZOLE 40 MG TABLET.DR PO SCH (07:30)
[2018-03-28 08:00] VITALS: BP 123/59
[2018-03-28] MEDS: CARBIDOPA/LEVODOPA 10/100 MG 1 UDTAB PO SCH ×3 (08:59→17:02)
[2018-03-28] MEDS: MULTIVITAMINS,THERAGRAN 1 UDTAB TABLET PO SCH (08:59)
[2018-03-28] MEDS: DOCUSATE SODIUM 100 MG CAPSULE PO SCH (09:00)
[2018-03-28] MEDS: CEPHALEXIN MONOHYDRATE 500 MG CAPSULE PO SCH ×2 (09:00→21:49)
[2018-03-28] MEDS: METOPROLOL TARTRATE 25 MG TABLET PO SCH (09:00)
[2018-03-28 16:00] VITALS: BP 100/55
[2018-03-28] MEDS: RIVAROXABAN 10 MG TABLET PO SCH (17:03)
[2018-03-28 20:00] VITALS: BP_SYST 109; BP_SYST 115; BP_DIAS 52; BP_DIAS 64
[2018-03-28] MEDS: QUETIAPINE FUMARATE 25 MG TABLET PO SCH (21:49)
[2018-03-28] MEDS: MIRTAZAPINE 15 MG TABLET PO SCH (21:49)
[2018-03-28] MEDS: DONEPEZIL 5 MG TABLET PO SCH (21:49)
--- NOTE | 2018-03-28 22:18 | NUR ---
RT UNAWARE OF PT TX. WILL CONTINUE WITH NEXT SCHEDULED TX.
[2018-03-29 08:00] VITALS: BP 102/55
[2018-03-29] MEDS: IPRATROPIUM NEB FS 0.5 MG/2.5 ML AMPUL.NEB NEB SCH ×3 (08:44→19:30)
[2018-03-29] MEDS: ALBUTEROL FS 2.5 MG/3 ML VIAL.NEB NEB SCH ×3 (08:44→19:30)
[2018-03-29] MEDS: METOPROLOL TARTRATE 25 MG TABLET PO SCH (09:00)
[2018-03-29] MEDS: MULTIVITAMINS,THERAGRAN 1 UDTAB TABLET PO SCH (09:10)
[2018-03-29] MEDS: DOCUSATE SODIUM 100 MG CAPSULE PO SCH (09:10)
[2018-03-29] MEDS: CEPHALEXIN MONOHYDRATE 500 MG CAPSULE PO SCH ×2 (09:10→20:51)
[2018-03-29] MEDS: CARBIDOPA/LEVODOPA 10/100 MG 1 UDTAB PO SCH ×3 (09:10→17:04)
[2018-03-29] MEDS: PANTOPRAZOLE 40 MG TABLET.DR PO SCH (09:10)
[2018-03-29 16:00] VITALS: BP 98/69
[2018-03-29] MEDS: LORAZEPAM 0.5 MG TABLET PO PRN (16:55)
--- NOTE | 2018-03-29 16:57 | NUR ---
GPS/RN ASSESSED PT WITH CHARGE NURSE MISHEL. FOUND OLD SKIN DISCOLORATIONS CONSISTENT WITH BLOOD DRAWS/ ANTICOAGULANT THERAPY. PICTURES TAKEN AND PLACED IN THE CHART. ATIVAN 0.5MG PRN GIVEN FOR ANXIETY. PT'S DAUGHTER CALLED AND MADE AWARE OF PT'S CONDITION, TREATMENT, FOOD INTAKE AND SCHEDULED MEDS
[2018-03-29] MEDS: RIVAROXABAN 10 MG TABLET PO SCH (17:05)
--- NOTE | 2018-03-29 19:38 | NUR ---
VITALS TAKEN: 95/52, 66, 91% SATURATION ON ROOM AIR. PLACED ON TRENDELENBERG POSITION, WILL CHECK BP IN AN HOUR.
--- NOTE | 2018-03-29 19:45 | NUR ---
OFFERED SANDWICH, APPLE JUICE AND WATER. PATIENT STARTED TO DRINK AND EAT AT THIS TIME.
[2018-03-29 20:00] VITALS: BP 98/53
--- NOTE | 2018-03-29 21:44 | NUR ---
210: BP 85/52, HR 62, 94% SAT. ON ROOM AIR. NO ACUTE DISTRESS NOTED. RECHECK BP AT 2200.
[2018-03-29] MEDS: MIRTAZAPINE 15 MG TABLET PO SCH (21:51)
[2018-03-29] MEDS: DONEPEZIL 5 MG TABLET PO SCH (21:51)
[2018-03-29] MEDS: QUETIAPINE FUMARATE 25 MG TABLET PO SCH (21:52)
--- NOTE | 2018-03-29 22:19 | NUR ---
2200: VITALS NOW 122//63, HR 79, 91% SATURATION ON ROOM AIR. PATIENT SHOWS NO S/S OPF ANY RESPIRATORY DISTRESS. WILL CONTINUE TO MONITOR.
[2018-03-30] MEDS: ALBUTEROL FS 2.5 MG/3 ML VIAL.NEB NEB SCH ×4 (01:00→20:28)
[2018-03-30] MEDS: IPRATROPIUM NEB FS 0.5 MG/2.5 ML AMPUL.NEB NEB SCH ×4 (01:00→20:27)
[2018-03-30 08:00] VITALS: BP 106/58
[2018-03-30] MEDS: METOPROLOL TARTRATE 25 MG TABLET PO SCH (09:34)
[2018-03-30] MEDS: DOCUSATE SODIUM 100 MG CAPSULE PO SCH (09:34)
[2018-03-30] MEDS: CARBIDOPA/LEVODOPA 10/100 MG 1 UDTAB PO SCH ×3 (09:34→18:08)
[2018-03-30] MEDS: CEPHALEXIN MONOHYDRATE 500 MG CAPSULE PO SCH ×2 (09:34→20:41)
[2018-03-30] MEDS: PANTOPRAZOLE 40 MG TABLET.DR PO SCH (09:34)
[2018-03-30] MEDS: MULTIVITAMINS,THERAGRAN 1 UDTAB TABLET PO SCH (09:35)
[2018-03-30 11:00] VITALS: BP 98/56
[2018-03-30 16:00] VITALS: BP 97/55
--- NOTE | 2018-03-30 18:00 | NUR ---
BP STILL RUNNING ON LOW SIDE,DENIES DIZZINESS.
[2018-03-30] MEDS: RIVAROXABAN 10 MG TABLET PO SCH (18:10)
[2018-03-30] MEDS ORDERED: ALBUTEROL FS 2.5 MG/3 ML VIAL.NEB ONE (19:39)
[2018-03-30] MEDS ORDERED: IPRATROPIUM NEB FS 0.5 MG/2.5 ML AMPUL.NEB ONE (19:39)
[2018-03-30 20:00] VITALS: BP_SYST 92; BP_DIAS 50; BP_DIAS 52
--- NOTE | 2018-03-30 20:00 | NUR ---
BP 92/52, HR 68. NO ACUTE DISTRESS NOTED. PATIENT HAD TUNA SANDWICH, APPLE JUICE, ORANGE JUICE AND WATER. WILL RECHECK VITALS LATER.
[2018-03-30] MEDS: DONEPEZIL 5 MG TABLET PO SCH (21:22)
[2018-03-30] MEDS: MIRTAZAPINE 15 MG TABLET PO SCH (21:22)
[2018-03-30] MEDS: QUETIAPINE FUMARATE 25 MG TABLET PO SCH (22:00)
--- NOTE | 2018-03-30 22:24 | NUR ---
GIVEN [facility] TREATMENT REGULAR Q6HRT. Addendum: 03/30/18 at 2224 by HARIS GALLOWAY RT Amended: Links added.
[2018-03-31] MEDS: IPRATROPIUM NEB FS 0.5 MG/2.5 ML AMPUL.NEB NEB SCH ×4 (01:40→19:48)
[2018-03-31] MEDS: ALBUTEROL FS 2.5 MG/3 ML VIAL.NEB NEB SCH ×4 (01:40→19:48)
[2018-03-31] MEDS: TEMAZEPAM 7.5 MG CAPSULE PO PRN (01:45)
--- NOTE | 2018-03-31 01:45 | NUR ---
TEMAZEPAM 7.5 MG CAP 1 PO GIVEN FOR SLEEP PER PATIENT'S REQUEST.
--- NOTE | 2018-03-31 04:25 | NUR ---
LATEST BP 95/46, HR 61. NO ACUTE DISTRESS NOTED. WILL CONTINUE TO MONITOR.
[2018-03-31] MEDS: METOPROLOL TARTRATE 25 MG TABLET PO SCH (09:00)
[2018-03-31] MEDS: CEPHALEXIN MONOHYDRATE 500 MG CAPSULE PO SCH ×2 (09:15→21:26)
[2018-03-31] MEDS: PANTOPRAZOLE 40 MG TABLET.DR PO SCH (09:15)
[2018-03-31] MEDS: MULTIVITAMINS,THERAGRAN 1 UDTAB TABLET PO SCH (09:15)
[2018-03-31] MEDS: DOCUSATE SODIUM 100 MG CAPSULE PO SCH (09:15)
[2018-03-31] MEDS: LORAZEPAM 0.5 MG TABLET PO PRN (09:15)
[2018-03-31] MEDS: CARBIDOPA/LEVODOPA 10/100 MG 1 UDTAB PO SCH ×3 (09:16→16:57)
[2018-03-31 16:00] VITALS: BP 99/59
[2018-03-31] MEDS: RIVAROXABAN 10 MG TABLET PO SCH (16:56)
[2018-03-31 20:33] VITALS: BP 114/71
[2018-03-31] MEDS: DONEPEZIL 5 MG TABLET PO SCH (21:27)
[2018-03-31] MEDS: MIRTAZAPINE 15 MG TABLET PO SCH (21:27)
[2018-03-31] MEDS: QUETIAPINE FUMARATE 25 MG TABLET PO SCH (22:27)
[2018-03-31] MEDS ORDERED: Z GUARD REMEDY 2 OZ OINT TP PRN (23:30)
[2018-04-01] MEDS: ALBUTEROL FS 2.5 MG/3 ML VIAL.NEB NEB SCH ×4 (01:19→19:53)
[2018-04-01] MEDS: IPRATROPIUM NEB FS 0.5 MG/2.5 ML AMPUL.NEB NEB SCH ×4 (01:19→19:53)
[2018-04-01 08:00] VITALS: BP 116/61
[2018-04-01] MEDS: CEPHALEXIN MONOHYDRATE 500 MG CAPSULE PO SCH ×2 (08:54→21:45)
[2018-04-01] MEDS: PANTOPRAZOLE 40 MG TABLET.DR PO SCH (08:54)
[2018-04-01] MEDS: DOCUSATE SODIUM 100 MG CAPSULE PO SCH (08:54)
[2018-04-01] MEDS: CARBIDOPA/LEVODOPA 10/100 MG 1 UDTAB PO SCH ×3 (08:54→16:28)
[2018-04-01] MEDS: MULTIVITAMINS,THERAGRAN 1 UDTAB TABLET PO SCH (08:55)
[2018-04-01] MEDS: METOPROLOL TARTRATE 25 MG TABLET PO SCH (08:59)
--- NOTE | 2018-04-01 10:00 | NUR ---
GPS RN NOTE: PT IN THE ROOM WITH 1;1 SITTER AT THE SIDE, PT A/O X2 COMPLIANT WITH MEDICATIONS NO S/S DISTRESS NOTED. SKIN CHECKED NOTED SACRAL WOUND, PICTURE PLACED IN THE CHART ,WOUND CONSULT ORDERS. PT WAS CLEAN PAT DRY, Z GUARD APPLIED. WILL CONTINUE MONITORING.
--- NOTE | 2018-04-01 14:37 | NUR ---
SW contacted [facility] ([phone]) and spoke to Anny who stated that the pt can return upon discharge.
--- NOTE | 2018-04-01 14:38 | NUR ---
Rosalee ([phone]), pt's daughter, called the SW and asked her when the pt will be discharged. The SW that she did not have a discharge date from the psychiatrist yet. The reason that daughter wanted to know was so that she can make sure that the pt will be returning to [facility].
--- NOTE | 2018-04-01 14:40 | NUR ---
DEISI called the pt's daughter, Rosalee ([phone]), and informed her that the pt will be discharging on Sunday and that the facility has confirmed it once again.
[2018-04-01 16:00] VITALS: BP 100/53
[2018-04-01] MEDS: RIVAROXABAN 10 MG TABLET PO SCH (16:29)
[2018-04-01] MEDS: LORAZEPAM 0.5 MG TABLET PO PRN (20:33)
[2018-04-01 20:56] VITALS: BP 103/56
[2018-04-01] MEDS: TEMAZEPAM 7.5 MG CAPSULE PO PRN (21:45)
[2018-04-01] MEDS: MIRTAZAPINE 15 MG TABLET PO SCH (21:45)
[2018-04-01] MEDS: DONEPEZIL 5 MG TABLET PO SCH (21:45)
[2018-04-01] MEDS: QUETIAPINE FUMARATE 25 MG TABLET PO SCH (21:45)
[2018-04-02] MEDS: IPRATROPIUM NEB FS 0.5 MG/2.5 ML AMPUL.NEB NEB SCH ×4 (01:30→21:20)
[2018-04-02] MEDS: ALBUTEROL FS 2.5 MG/3 ML VIAL.NEB NEB SCH ×4 (01:30→21:20)
[2018-04-02 08:00] VITALS: BP 110/58
[2018-04-02] MEDS: METOPROLOL TARTRATE 25 MG TABLET PO SCH (09:00)
[2018-04-02] MEDS: PANTOPRAZOLE 40 MG TABLET.DR PO SCH (09:13)
[2018-04-02] MEDS: DOCUSATE SODIUM 100 MG CAPSULE PO SCH (09:13)
[2018-04-02] MEDS: CARBIDOPA/LEVODOPA 10/100 MG 1 UDTAB PO SCH ×3 (09:13→16:32)
[2018-04-02] MEDS: CEPHALEXIN MONOHYDRATE 500 MG CAPSULE PO SCH ×2 (09:13→21:16)
[2018-04-02] MEDS: MULTIVITAMINS,THERAGRAN 1 UDTAB TABLET PO SCH (09:14)
--- NOTE | 2018-04-02 09:41 | NUR ---
DEISI contacted [facility] to obtain name of senior marketing engineer/psychiatrist as pt will be discharging tomorrow. Per Mouna from admissions Dr. Nunez will be pts senior marketing engineer and psychiatrist was still unknown. Mouna stated that she was going into a meeting and would obtain psychiatric information and would call DEISI back. DEISI faxed updated clinicals on this date per request.
--- NOTE | 2018-04-02 11:17 | NUR ---
WOUND CARE CONSULT: PT PRESENTS WITH RASH AND OPEN SKIN TO GLUTEAL CREASE OVER EXISTING SCAR. SCAR PRESENT ON ADMISSION. PT STATES HAD A WOUND THERE A LONG TIME AGO. PT IS INCONTINENT. ALL SKIN PROTECTION AND SKIN CARE RECOMMENDATIONS DISCUSSED WITH NURSING STAFF. PT ABLE TO ASSIST WITH TURNING AND REPOSITIONING IN BED. PT WALKS WITH ASSISTANCE PER NURSING STAFF. WILL SEE PRN. NYE IN AGREEMENT WITH PLAN OF CARE. Addendum: 04/02/18 at 1119 by JOSSIE BLAKE WNDNU Amended: Links added.
--- NOTE | 2018-04-02 15:50 | NUR ---
DEISI contacted [facility] and spoke to Merrillan from admissions to confirm pts discharge for tomorrow at 11am; which she agreed. DESII was provided with psychiatrist for follow up care (i.e. Dr Barroso). DEISI also contacted [employer] [facility] to arrange for transportation (trip # [id number]).
[2018-04-02 16:00] VITALS: BP 121/78
[2018-04-02] MEDS: RIVAROXABAN 10 MG TABLET PO SCH (16:33)
[2018-04-02] MEDS: CLOTRIMAZOLE 1% 15 GM TUBE TP SCH (16:34)
[2018-04-02 20:40] VITALS: BP 116/61
[2018-04-02] MEDS: QUETIAPINE FUMARATE 25 MG TABLET PO SCH (21:16)
[2018-04-02] MEDS: MIRTAZAPINE 15 MG TABLET PO SCH (21:17)
[2018-04-02] MEDS: DONEPEZIL 5 MG TABLET PO SCH (21:17)
[2018-04-03] MEDS: ALBUTEROL FS 2.5 MG/3 ML VIAL.NEB NEB SCH ×2 (01:30→08:18)
[2018-04-03] MEDS: IPRATROPIUM NEB FS 0.5 MG/2.5 ML AMPUL.NEB NEB SCH ×2 (01:30→08:18)
[2018-04-03 08:00] VITALS: BP 127/65
[2018-04-03] MEDS: CARBIDOPA/LEVODOPA 10/100 MG 1 UDTAB PO SCH (09:05)
[2018-04-03] MEDS: PANTOPRAZOLE 40 MG TABLET.DR PO SCH (09:05)
[2018-04-03] MEDS: MULTIVITAMINS,THERAGRAN 1 UDTAB TABLET PO SCH (09:05)
[2018-04-03 09:06] VITALS: BP 127/65
[2018-04-03] MEDS: METOPROLOL TARTRATE 25 MG TABLET PO SCH (09:06)
[2018-04-03] MEDS: DOCUSATE SODIUM 100 MG CAPSULE PO SCH (09:06)
[2018-04-03] MEDS: CEPHALEXIN MONOHYDRATE 500 MG CAPSULE PO SCH (09:08)
[2018-04-03] MEDS: CLOTRIMAZOLE 1% 15 GM TUBE TP SCH (09:09)
--- NOTE | 2018-04-03 11:15 | NUR ---
[id number]: PT IS 88 YEARS OLD FEMALE DISCHARGE TO [facility], [address] [place] [address] IN STABLE CONDITION. COMPLIANT WITH MEDICATIONS, COOPERATIVE WITH TREATMENT PLANS. PT DENIES SI/HI/AVH. BEHAVIOR IMPROVED, PSYCHIATRIC TX PLANS MET, MEDICAL TX PLANS DEFERRED FOR CONTINUAL MONITORING. EDUCATED PT ABOUT AFTER CARE PLAN AND COPY PROVIDED. RETURNED PERSONAL BELONGINGS TO PT. MEDICATIONS RECONCILED WITH DR. CASTILLO AND STEVEN VELASQUEZ. REPORT GIVEN TO EDUARDO AT [facility] FOR CONTINUITY OF CARE. PT REFUSED TO SIGN DISCHARGE PAPERWORK. PT REFUSED SKIN ASSESSMENT DONE. PT LEFT VIA AMBULANCE.
--- NOTE | 2018-04-03 14:38 | NUR ---
Discharge Note: Pt was discharged to [facility] located at [address] [id number]; ([phone]). Pt was transported via [facility] (Trip #[id number]) at 11AM. Pts daughter, Rosalee ([phone]), agreed to this placement as well as the pt herself. Upon discharge, the pt appeared to be in a euthymic mood with a content affect. Pt stated that she was excited to be going back and just hopes that the facility placed her in a different room. Pt denied having any suicidal or homicidal ideation and denied having any auditory or visual hallucinations. Pt will be under the care of psychiatrist, Dr. Barroso, located at [address] [place] [address]; ([phone]). Pt will also be under the care of die cutter apprentice, Dr. Nunez, located at [address] [place] [address]; ([phone]).
== END 2018-04-03 11:15 | DRG 885 ==
LOC: ER 12:53 → GPS 14:07
PROVIDERS: ADMIT Psychiatry & Neurology Psychosomatic Medicine; ATTEND Nurse Practitioner Acute Care
DX: F33.3 Major depressive disorder, recurrent, severe with psychotic symptoms (principal); F01.50 Vascular dementia, unspecified severity, without behavioral disturbance, psychotic disturbance, mood disturbance, and anxiety; N18.9 Chronic kidney disease, unspecified; G93.41 Metabolic encephalopathy; E44.0 Moderate protein-calorie malnutrition; N39.0 Urinary tract infection, site not specified; I13.0 Hypertensive heart and chronic kidney disease with heart failure and stage 1 through stage 4 chronic kidney disease, or unspecified chronic kidney disease; F29 Unspecified psychosis not due to a substance or known physiological condition; Z86.73 Personal history of transient ischemic attack (TIA), and cerebral infarction without residual deficits; E88.09 Other disorders of plasma-protein metabolism, not elsewhere classified; B96.20 Unspecified Escherichia coli [E. coli] as the cause of diseases classified elsewhere; D47.3 Essential (hemorrhagic) thrombocythemia; Z68.25 Body mass index [BMI] 25.0-25.9, adult; G20 Parkinson's disease; I25.10 Atherosclerotic heart disease of native coronary artery without angina pectoris; K21.9 Gastro-esophageal reflux disease without esophagitis; J44.9 Chronic obstructive pulmonary disease, unspecified; I50.9 Heart failure, unspecified; Z88.2 Allergy status to sulfonamides
CPT/HCPCS: 36415; 80048-TC; 80053-TC; 80061-TC; 80076-TC; 80305; 81000-TC; 84443-TC; 85025-TC; 87081-TC; 87086-TC; 87186-TC; A4606; G0480; Z7610